=== PATIENT | female | born 1970 | race Caucasian/White ===

== ENCOUNTER 2019-10-06 08:56 | Emergency (ER) | payer OTHER, BC ==
[~2019-10-06] VITALS: Ht 177.8 cm; Wt 113.4 kg
[~2019-10-06 08:56] MED LIST: POLYMYXIN B-TMP10 ML OD
== END 2019-10-06 09:32 | disposition home or self-care (01) ==
LOC: ED 08:56
DX: M25.561 Pain in right knee (principal)

== ENCOUNTER 2022-02-10 10:09 | Emergency (ER) | payer OTHER, BC ==
[~2022-02-10] VITALS: Ht 177.8 cm; Wt 113.4 kg
[2022-02-10] MEDS ORDERED: CEPHALEXIN500 M1 PO (10:53)
== END 2022-02-10 11:05 | disposition home or self-care (01) ==
LOC: ED 10:09
DX: S61.042A Puncture wound with foreign body of left thumb without damage to nail, initial encounter (principal); W22.8XXA Striking against or struck by other objects, initial encounter; Z23 Encounter for immunization
CPT/HCPCS: 64450; 73130; 90471; 90715; 99283-25; A9270

== ENCOUNTER 2022-03-05 05:40 | Day surgery (SDC) | payer BC ==
[~2022-03-05] VITALS: Ht 177.8 cm; Wt 122.7 kg
[~2022-03-05 05:40] MED LIST changes: +CEPHALEXIN500 M1 PO
[2022-03-05] MEDS ORDERED: MELOXICAM10 MG PO (06:07)
[2022-03-05] MEDS ORDERED: VITAMIN D250 MC1 PO (06:08)
--- NOTE | 2022-03-05 08:00 | NUR ---
03/05/22 0800 Ramila Diehl 0755-PT TO PACU IN LL POSITION. OPENS EYES TO VERBAL STIMULI. DENIES PAIN AND NAUSEA. BREATHING EASY AND UNLABORED. SPO2 >95% ON 3 L O2 VIA NC. PT ENCOURAGED TO PASS GAS AND EDUCATED ABOUT THE POC IN PACU. PT FALLS QUICKLY BACK TO SLEEP WITHOUT RN STIMULI
--- NOTE | 2022-03-05 09:54 | NUR ---
PT ALERT, ORIENTED AND SUPPORTED BY HER SUSY. PT HERE FOR FIRST, ROUTINE SCOPE. PT MENTIONED SHE WAS UP MOST OF THE NIGHT AND LOOKING FORWARD TO SOMETHING TO EAT AND REST. ALL QUESTIONS ASKED ANSWERED. SUSY WILL REMAIN FOR DC. GAVE BLESSING, WILL FOLLOW
--- NOTE | 2022-03-06 06:11 | OR ---
[facility] [address] [place], [place] [address] Signed DATE OF OPERATION: 03/05/2022 SURGEON: Estelita Edouard MD PREOPERATIVE DIAGNOSIS: Screening. POSTOPERATIVE DIAGNOSIS: Unremarkable colonoscopy. PROCEDURE: Colonoscopy without biopsy. ESTIMATED BLOOD LOSS: None. INDICATIONS: Jamila is a 51-year-old obese female, asked to see me for her initial screening colonoscopy. She has no lower GI complaints. There is no family history of colon cancer or polyps. In the office, I gave her a pamphlet on colonoscopy. She understands the nature of the test. There is risk including, but not limited to gas bloating, crampy abdominal pain, bleeding, perforation requiring surgery, and missed diagnosis. She also understands the need for IV conscious sedation. She had expressed understanding and wished to proceed. PROCEDURE NOTE: Jamila was taken into our endoscopy suite and placed in the left lateral decubitus position. She was given a total of 6 mg of Versed and 125 mcg of fentanyl to cover the case. A digital rectal exam was performed and this was unremarkable. The adult colonoscope was introduced and advanced quite readily up into the cecum itself. Her prep was good. We could easily see the appendiceal orifice and the ileocecal valve. The scope was then slowly withdrawn. We took pictures throughout for photodocumentation. She has no diverticulosis. There were no polyps. The rectum was unremarkable. Upon retroflexion of the scope, there was no additional pathology noted above the anal canal. After this, the gas was suctioned out. The colonoscope was removed. Jamila tolerated the procedure quite well. RECOMMENDATIONS: Jamila to follow up in 10 years for repeat screening colonoscopy. Electronically Signed By: ESTELITA EDOUARD MD 03/06/22 0611 PATIENT NAME: JAMILA CANADA OPERATIVE REPORT DATE OF : 68 REPORT #: [id number] PHYSICIAN: ESTELITA EDOUARD MD PCP: ALFONSO RAHMAN PAC REPORT IS CONFIDENTIAL AND NOT TO BE RELEASED WITHOUT AUTHORIZATION [address], [place] [address] Signed MD RODO Marr/VANNA /[id number] cc: LANETTE Christine MD Copies: ESTELITA EDOUARD MD ~ Electronically Signed By: ESTELITA EDOUARD MD 03/06/22 0611 PATIENT NAME: EUGENIA CANADABAO ALDRIDGE OPERATIVE REPORT DATE OF : 68 REPORT #: [id number] PHYSICIAN: ESTELITA EDOUARD MD PCP: ALFONSO RAHMAN PAC REPORT IS CONFIDENTIAL AND NOT TO BE RELEASED WITHOUT AUTHORIZATION
== END 2022-03-05 08:35 | disposition home or self-care (01) ==
LOC: DS 05:40
PROVIDERS: ATTEND Colon & Rectal Surgery
PROC: 0DJD8ZZ Inspection of Lower Intestinal Tract, Via Natural or Artificial Opening Endoscopic (ICD-10-PCS; principal; 2022-03-05 07:30)
DX: Z12.11 Encounter for screening for malignant neoplasm of colon (principal); E78.5 Hyperlipidemia, unspecified; M19.049 Primary osteoarthritis, unspecified hand; E66.9 Obesity, unspecified; Z68.39 Body mass index [BMI] 39.0-39.9, adult
CPT/HCPCS: 87502; 99153; G0500; J2250; J3010; J7121; U0003

== ENCOUNTER 2025-07-25 06:22 | Emergency (ER) | payer OTHER, BC ==
[~2025-07-25] VITALS: Ht 175.3 cm; Wt 125.0 kg
[~2025-07-25 06:22] MED LIST changes: +MELOXICAM10 MG PO; +VITAMIN D250 MC1 PO
[2025-07-25] MEDS ORDERED: CEPHALEXIN500 M1 PO (08:34)
[2025-07-25 09:07] VITALS: BP 184/107
== END 2025-07-25 09:09 | disposition home or self-care (01) ==
LOC: ED 06:22
DX: S66.321A Laceration of extensor muscle, fascia and tendon of left index finger at wrist and hand level, initial encounter (principal); Z79.1 Long term (current) use of non-steroidal anti-inflammatories (NSAID); W27.0XXA Contact with workbench tool, initial encounter
CPT/HCPCS: 12002; 73130; 99283

== ENCOUNTER 2025-07-27 06:00 | Day surgery (SDC) | payer OTHER, BC ==
[~2025-07-27] VITALS: Ht 177.8 cm; Wt 123.0 kg
[~2025-07-27 06:00] MED LIST changes: +LACTATED RINGER'S 1,000 ML IV SCH
[2025-07-27 06:30] VITALS: BP 173/115
[2025-07-27] MEDS ORDERED: HYDROCODON-ACE1 EA10 PO (06:34)
[2025-07-27] MEDS ORDERED: IBLOOD GLUCOSE TEST STRIP 1 EA TEST VI PRN (07:00)
[2025-07-27] MEDS ORDERED: CEFAZOLIN SODIUM 3 GM in SODIUM CHLORIDE 0.9% 100 ML IV SCH (07:00)
[2025-07-27] MEDS ORDERED: LIDOCAINE HCL 1% 5 ML SDV INJ ONE (07:00)
[2025-07-27 07:10] LABS: BASOPHILS 0.6 % (0.1-1.2); BASOPHILS, ABSOLUTE 0.03 K/uL (0.01-0.08); EOSINOPHILS 4.4 % (0.7-5.8); EOSINOPHILS, ABSOLUTE 0.22 K/uL (0.04-0.36); LYMPHOCYTES 25.3 % (19.3-51.7); MCH 30.6 PG (25.6-32.2); MCHC 33.2 g/dL (32.2-35.5); MCV 92.1 fL (79.4-94.8); MONOCYTES 8.0 % (4.7-12.5); MONOCYTES, ABSOLUTE 0.40 K/uL (0.24-0.86); NEUTROPHILS 61.3 % (34.0-71.1); NEUTROPHILS, ABSOLUTE 3.06 K/uL (1.56-6.13); RBC 4.68 M/uL (3.93-5.22)
[2025-07-27 07:36] LABS: ALT (SGPT) 20.0 U/L (14-59); AST (SGOT) 18.0 U/L (15-37); GLOMERULAR FILTRATION RATE,EST 67.0 mL/min (>60); PROTEIN, TOTAL 6.8 g/dL (6.4-8.2); UREA NITROGEN 15.0 mg/dL (7-18)
[2025-07-27] MEDS ORDERED: HYDROCODONE/ACETA 5/325 TAB PO PRN (09:45)
[2025-07-27] MEDS ORDERED: fentaNYL citrate 100 MCG/2 ML VIAL ONE (09:49)
[2025-07-27] MEDS ORDERED: LIDOCAINE HCL 2% 5 ML SDV ONE ×2 (09:49→10:16)
[2025-07-27] MEDS ORDERED: DEXAMETHASONE SOD PHOS 4 MG/ML VIAL ONE (09:49)
[2025-07-27] MEDS ORDERED: ACETAMINOPHEN 1,000 MG/100 ML VIAL ONE (09:50)
[2025-07-27] MEDS ORDERED: Ropivacaine HCl 0.5% 30 ML VIAL ONE (09:54)
[2025-07-27] MEDS ORDERED: MIDAZOLAM HCL 2 MG/2 ML VIAL ONE (09:54)
--- NOTE | 2025-07-27 10:10 | NUR ---
heel sorter rb in to do block l axilla. see anesthesia record.
[2025-07-27] MEDS ORDERED: SEVOFLURANE 250 ML BTL INH ONE (11:14)
[2025-07-27 11:48] VITALS: BP 162/90
--- NOTE | 2025-07-27 11:53 | NUR ---
07/27/25 1153 Lorrie Campbell 1118: PT ARRIVED TO PACU ON RA AND AWAK AND TALKING 1125: PT REQUESTING FRESH WATER AT THIS TIME. PT HAS HARD SPLINT IN PLACE ON LEFT ARM. GOOD CAP REFIL. FINGER WARM TO TOUCH. DRESSING C/D/I. PT HAS NO COMPLAINTS OF PAIN OR NAUSEA 1135: PT REMAINS ON RA. NO COMPLAINTS OF PAIN. 1148: PT TAKEN BACK TO DAY SURGERY REPORT GIVEN TO JAMES WEI.
--- NOTE | 2025-07-27 12:06 | NUR ---
1128-PT BACK TO ROOM FROM PACU ON . RECEIVED REPORT FROM ANGEL WEI. PT IS AWAKE. RESP EVEN AND UNLABORED. JOSE GUADALUPE PAIN. STATES L HAND IS NUMB. L ARM IS ELEVATED WITH PILLOW AND ICE PACK IN PLACE. PT TAKING SIPS OF WATER. FAMILY IN ROOM. 1154-PT SITTING AT BEDSIDE. L ARM PLACED IN SLING. PT AMBULATES TO RESTROOM. GAIT STEADY AND TOLERATED WELL. PT ABLE TO VOID. LE 1159-PT BACK TO ROOM. LE 1201-PT EATING PUDDING. NO OTHER NEEDS AT THIT TIME. FAMILY IN ROOM. CALL LIGHT WITHIN REACH.
[2025-07-27 12:46] VITALS: BP 184/85
--- NOTE | 2025-07-27 13:04 | NUR ---
1246-PT LAYING IN BED. RESP EVEN AND UNLABORED. DENIES PAIN AND NAUSEA. PT HAS L ARM IN SLING. ELEVATED WITH A PILLOW AND ICE PACK IN PLACE. PT IS READAY TO GO HOME. PT WILL GET DRESSED WITH THE HELP OF HER FAMILY.
--- NOTE | 2025-07-27 13:05 | NUR ---
1255-WENT OVER DISCHARGE INSTRUCTIONS WITH PT AND HER FAMILY. ALL QUESTIONS ANSWERED. PT STATES SHE HAS A RX FOR PAIN MEDICATION AT HOME. PT AMBULATES TO WHEELCHAIR. 1300-RIDE PROVIDED TO FRONT OF HOSPITAL WHERE FAMILY WAS WAITING WITH THE CAR.
--- NOTE | 2025-07-29 10:41 | EKG ---
[facility] [address] [facility] [place], [place] [address] Signed Normal sinus rhythm Normal ECG No previous ECGs available Confirmed by Darnell Nickerson DO ([id number]) on 07/29/2025 10:41:45 AM Electronically Signed By: DARNELL NICKERSON DO 07/29/25 1041 PATIENT NAME: JOHNNIE CANADAKIKI RichardVONNE Electrocardiogram DATE OF : 68 PHYSICIAN: DARNELL NICKERSON DO REPORT #: [id number] REPORT IS CONFIDENTIAL AND NOT TO BE RELEASED WITHOUT AUTHORIZATION
--- NOTE | 2025-07-30 07:06 | OR ---
[facility] [address] [place], [place] [address] Signed DATE OF OPERATION: 07/27/2025 SURGEON: Bartolo Solano MD PREOPERATIVE DIAGNOSIS: Extensor tendon laceration, left index finger. POSTOPERATIVE DIAGNOSIS: Extensor tendon laceration, left index finger. PROCEDURE PERFORMED: Repair of extensor indicis proprius and extensor digitorum communis tendons, left hand. ASSOCIATE CIVIL ENGINEER: None. ANESTHESIA: General. TOURNIQUET TIME: 39 minutes. BRIEF HISTORY: Jamila is a 54-year-old female, who works at the local [employer]. She got her hand nicked by the chop saw while she was working. She had laceration across the dorsum of her hand and inability to straighten her finger. Risks and benefits of operative treatment were discussed with her and she elected to proceed. DESCRIPTION OF PROCEDURE: Once consent was obtained, she was taken to the operating room. After adequate anesthesia, she was placed on the operating room bed and hand table was brought in. The arm was placed in well-padded proximal arm tourniquet, prepped and draped in a standard sterile fashion. The arm was exsanguinated using Esmarch bandage and tourniquet inflated to 200 mmHg. The sutures from the laceration had been removed prior to the prepping. The laceration was opened up and cleaned of blood clot and debris. The distal ends of the tendon were easily recognized, however, to get access to them, I did have to extend the laceration distally about another inch. The proximal tendon stumps were readily available. The ends of the tendon stumps were cleaned and smoothed up and necrotic tissue was removed. Using a 4-0 Supramid suture, the EIP was repaired using a six strand repair followed by a 5-0 paratenon running stitch. The same procedure was Electronically Signed By: BARTOLO SOLANO MD 07/30/25 0706 PATIENT NAME: JAMILA CANADA OPERATIVE REPORT DATE OF : 68 REPORT #: [id number] PHYSICIAN: BARTOLO SOLANO MD PCP: ALFONSO RAHMAN PAC REPORT IS CONFIDENTIAL AND NOT TO BE RELEASED WITHOUT AUTHORIZATION [facility] [address] [place], [place] [address] Signed then performed on the EDC tendon. The finger was then flexed to 90 degrees and there was no gapping at the repair site. The wound was copiously irrigated with normal saline and the skin was closed using 3-0 Monocryl, followed by 3-0 nylon. Wound was dressed with Allevyn dressing and a radial gutter splint over sterile cast padding. She tolerated the procedure well. All sponge, needle, and instrument counts were correct. Bartolo Solano MD BA/MODL /[id number] Copies: ~ Electronically Signed By: BARTOLO SOLANO MD 07/30/25 0706 PATIENT NAME: JAMILA CANADA OPERATIVE REPORT DATE OF : 68 REPORT #: [id number] PHYSICIAN: BARTOLO SOLANO MD PCP: ALFONSO RAHMAN PAC REPORT IS CONFIDENTIAL AND NOT TO BE RELEASED WITHOUT AUTHORIZATION
== END 2025-07-27 13:00 | disposition home or self-care (01) ==
LOC: DS 06:00
PROVIDERS: ATTEND Specialist
PROC: 0LQ80ZZ Repair Left Hand Tendon, Open Approach (ICD-10-PCS; principal; 2025-07-27 10:30)
DX: S66.321A Laceration of extensor muscle, fascia and tendon of left index finger at wrist and hand level, initial encounter (principal); W31.2XXA Contact with powered woodworking and forming machines, initial encounter; G89.18 Other acute postprocedural pain; Z79.899 Other long term (current) drug therapy
CPT/HCPCS: 01810; 36415; 64417; 80053; 85025; 93005; 93010; J0131; J0688; J1100; J2003; J2250; J2405; J2704; J2795; J3010; J7121